=== PATIENT | female | born 1965 | race American Indian/Alaskan Native ===

== ENCOUNTER 2016-08-08 12:50 | Emergency (ER) | payer OTHER ==
[2016-08-08 13:18] VITALS: TEMP 98.2; BMI 36.9
[2016-08-08] MEDS ORDERED: ASPIRIN 81 MG CHEWABLE TABLETS PO ONE (16:46)
--- NOTE | 2016-08-08 16:46 | PDOC ---
History of Present Illness <Hilary Berkowitz - Last Filed: 08/08/16 19:11> <Ashlie Bowers - Last Filed: 08/09/16 02:35> - General Chief Complaint: Chest Pain Stated Complaint: RT SIDED CHEST PAIN Time Seen by Provider: 08/08/16 16:26 - History of Present Illness Initial Comments: 08/08/16 17:28 The patient is a 51 year old female with a past medical hx of NIDDM, anxiety who presents to the ED complaining of chest pain since today. The patient reports her pain is localized to the right upper chest. She states the pain is radiating into her right shoulder. The patient describes her chest pain as constant and squeezing and reports it feels as if her ribcage is in pain. The patient reports her pain is not significant. The patient denies any SOB, nausea, vomiting, diaphoresis The patient denies any fever, chills Surgical history: Appendectomy and (Hilary Berkowitz) Past History <Hilary Berkowitz - Last Filed: 08/08/16 19:11> - Past Medical History Diabetes: Yes - Surgical History Abdominal Surgery: Yes Appendectomy: Yes - Psycho/Social/Smoking Cessation Hx Anxiety: No Suicidal Ideation: No Smoking History: Never smoked Hx Alcohol Use: No Substance Use Type: None <Ashlie Bowers - Last Filed: 08/09/16 02:35> - Past Medical History Allergies/Adverse Reactions: Allergies Allergy/AdvReac Type Severity Reaction Status Date / Time No Known Allergies Allergy Verified 08/08/16 13:14 Home Medications: Ambulatory Orders NK [No Known Home Medication] 08/08/16 Review of Systems - Review of Systems Able to Perform ROS?: Yes <Hilary Berkowitz - Last Filed: 08/08/16 19:11> <Ashlie Bowers - Last Filed: 08/09/16 02:35> - Review of Systems Comments:: 08/08/16 17:29 CONSTITUTIONAL: Absent: fever, chills, diaphoresis, generalized weakness, malaise, loss of appetite HEENT: Absent: rhinorrhea, nasal congestion, throat pain, throat swelling, difficulty swallowing, mouth swelling, ear pain, eye pain, visual Changes CARDIOVASCULAR: +Chest pain. Absent: syncope, palpitations, irregular heart rate, lightheadedness, peripheral edema RESPIRATORY: Absent: cough, shortness of breath, dyspnea with exertion, orthopnea, wheezing, stridor, hemoptysis GASTROINTESTINAL: Absent: abdominal pain, abdominal distension, nausea, vomiting, diarrhea, constipation, melena, hematochezia GENITOURINARY: Absent: dysuria, frequency, urgency, hesitancy, hematuria, flank pain, genital pain MUSCULOSKELETAL: Absent: myalgia, arthralgia, joint swelling SKIN: Absent: rash, itching, pallor HEMATOLOGIC/IMMUNOLOGIC: Absent: easy bleeding, easy bruising, lymphadenopathy, frequent infections ENDOCRINE: Absent: unexplained weight gain, unexplained weight loss, heat intolerance, cold intolerance NEUROLOGIC: Absent: headache, focal weakness or paresthesias, dizziness, unsteady gait, seizure, mental status changes, bladder or bowel incontinence PSYCHIATRIC: Absent: anxiety, depression, suicidal or homicidal ideation, hallucinations. ( Hilary Berkowitz) *Physical Exam <Hilary Berkowitz - Last Filed: 08/08/16 19:11> <Ashlie Bowers - Last Filed: 08/09/16 02:35> - Vital Signs Last Vital Signs Temp Pulse Resp BP Pulse Ox 98.2 F 82 19 135/80 99 08/08/16 13:14 08/08/16 20:05 08/08/16 20:05 08/08/16 20:05 08/08/16 20:05 - Physical Exam Comments: 08/08/16 17:29 GENERAL: Well developed, well nourished. Awake and alert. No acute distress. HEENT: Normocephalic, atraumatic. PERRLA, EOMI. No conjunctival pallor. Sclera are non- icteric. Moist mucous membranes. Oropharynx is clear. NECK: Supple. Full ROM. No JVD. Carotid pulses 2+ and symmetric, without bruits. No thyromegaly. No lymphadenopathy. CARDIOVASCULAR: Regular rate and rhythm. No murmurs, rubs, or gallops. Distal pulses are 2+ and symmetric. PULMONARY: No evidence of respiratory distress. Lungs clear to auscultation bilaterally. No wheezing, rales or rhonchi. ABDOMINAL: Soft. Non-tender. Non-distended. No rebound or guarding. No organomegaly. Normoactive bowel sounds. MUSCULOSKELETAL Normal range of motion at all joints. No bony deformities or tenderness. No CVA tenderness. EXTREMITIES: No cyanosis. No clubbing. No edema. No calf tenderness. SKIN: Warm and dry. Normal capillary refill. No rashes. No jaundice. NEUROLOGICAL: Alert, awake, appropriate. Cranial nerves 2-12 intact. No deficits to light touch and temperature in face, upper extremities and lower extremities. (Hilary Berkowitz) Heart Score/ECG Review <Hilary Berkowitz - Last Filed: 08/08/16 19:11> <Ashlie Bowers - Last Filed: 08/09/16 02:35> - ECG Impressions Comment:: 08/08/16 19:[address] Bowers NSR at a rate of 89 bpm low voltage QRS Incomplete RBBB When compared to March 2015, similar. (Hilary Berkowitz) ED Treatment Course - LABORATORY CBC & Chemistry Diagram: 08/08/16 17:40 08/08/16 17:40 <Hilary Berkowitz - Last Filed: 08/08/16 19:11> - LABORATORY CBC & Chemistry Diagram: 08/08/16 17:40 08/08/16 17:40 <Ashlie Bowers - Last Filed: 08/09/16 02:35> - ADDITIONAL ORDERS Additional order review: Laboratory Results 08/08/16 08/08/16 17:40 17:40 INR 1.01 D-Dimer < 200 Sodium 139 Potassium 4.1 Chloride 103 Carbon Dioxide 26 Anion Gap 10 BUN 11 D Creatinine 0.7 Creat Clearance w eGFR > 60 Random Glucose 90 D Calcium 8.8 Magnesium 1.9 Total Bilirubin 0.4 D AST 12 L ALT 28 Alkaline Phosphatase 73 Creatine Kinase 37 Troponin I < 0.02 Total Protein 6.9 Albumin 3.6 08/08/16 17:40 RBC 4.68 MCV 78.1 L MCHC 31.3 L RDW 15.0 MPV 8.7 Neutrophils % 58.9 D Lymphocytes % 30.8 D Monocytes % 5.4 Eosinophils % 3.6 Basophils % 1.3 - RADIOLOGY Radiology Studies Ordered: Category Date Time Status CHEST PA & LAT [RAD] Stat Radiology 08/08/16 16:46 Completed - Medications Given in the ED: ED Medications Discontinued Medications Generic Name Dose Route Start Last Admin Trade Name Freq PRN Reason Stop Dose Admin Aspirin 162 mg 08/08/16 16:46 08/08/16 18:03 Asa - PO 08/08/16 16:47 162 mg ONCE ONE Administration Medical Decision Making <Hilary Berkowitz - Last Filed: 08/08/16 19:11> <Ashlie Bowers - Last Filed: 08/09/16 02:35> - Medical Decision Making 08/09/16 02:33 51 yo female has had squeezing right sided chest pain radiating to her shoulder for 1 week -no anterior chest bee, no dyspnea cbc wnl negative cardiac enzyme d dimer negative cxr napd pt will followup with her physician for 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 (Ashlie Bowers) *DC/Admit/Observation/Transfer <Hilary Berkowitz - Last Filed: 08/08/16 19:11> <Ashlie Bowers - Last Filed: 08/09/16 02:35> Diagnosis at time of Disposition: Atypical chest pain - Discharge Dispostion Disposition: HOME Condition at time of disposition: Stable - Referrals Referrals: Zoe Marks [Primary Care Provider] - - Patient Instructions Printed Discharge Instructions: DI for Atypical Chest Pain, DI for Chest Pain Additional Instructions: please follow up with your regular physician this week to have cardiology referral for echo - Attestations Scribe Attestion: 08/08/16 17:28 Documentation prepared by Hilary Berkowitz, acting as medical payment poster for Ashlie Bowers MD/. (Hilary Berkowitz)
[2016-08-08] MEDS ORDERED: ASPIRIN 81 MG CHEWABLE TABLETS ONE (17:46)
[2016-08-08 17:52] LABS: BASOPHIL 1.3 % (0-2.0); EOSINOPHIL 3.6 % (0-4.5); MCH 24.4 pg (25.7-33.7); MCHC 31.3 g/dl (32.0-36.0); MEAN CELL VOLUME 78.1 fl (80-96); MEAN PLT VOLUME 8.7 fl (7.5-11.1); NEUTROPHILS 58.9 % (42.8-82.8); PLATELET COUNT 249 K/MM3 (134-434); WHITE BLOOD COUNT 11.3 K/mm3 (4.0-10.0)
[2016-08-08 18:10] LABS: INR 1.01 (0.82-1.09)
[2016-08-08 18:13] LABS: D-DIMER < 200 ng/ml (<200-235)
[2016-08-08 18:33] LABS: ALBUMIN 3.6 g/dl (3.4-5.0); ANION GAP 10 (8-16); BILIRUBIN,TOTAL 0.4 mg/dL (0.2-1.0); CALCIUM 8.8 mg/dL (8.5-10.1); CO2 26 mmol/L (21-32); CREATININE 0.7 mg/dL (0.55-1.02); GLUCOSE,RANDOM 90 mg/dL (74-106); MAGNESIUM 1.9 mg/dL (1.8-2.4); SGOT/AST 12 U/L (15-37); SGPT/ALT 28 U/L (12-78); TOT PROT 6.9 g/dl (6.4-8.2)
[2016-08-08 18:36] LABS: ALK PHOS 73 U/L (45-117); TROPONIN I < 0.02 ng/ml (0.00-0.05)
[2016-08-08 20:06] VITALS: BP 135/80; PULSE 82
--- NOTE | 2016-08-09 13:22 | EKG ---
Test Reason : Blood Pressure : / mmHG Vent. Rate : 089 BPM Atrial Rate : 089 BPM P-R Int : 170 ms QRS Dur : 094 ms QT Int : 352 ms P-R-T Axes : 055 066 044 degrees QTc Int : 428 ms NORMAL SINUS RHYTHM LOW VOLTAGE QRS INCOMPLETE RIGHT BUNDLE BRANCH BLOCK BORDERLINE ECG WHEN COMPARED WITH ECG OF 08-MAR-2015 19:47, NO SIGNIFICANT CHANGE WAS FOUND Confirmed by LANDON GRISSOM, RISHI ([id number]) on 08/09/2016 1:21:56 PM Referred By: Confirmed By:RISHI NAVARRETE MD
== END 2016-08-08 20:07 | disposition home or self-care (01) ==
LOC: JER 12:50
DX: R07.89 Other chest pain (principal); E11.9 Type 2 diabetes mellitus without complications
CPT/HCPCS: 36415; 71020-TC; 80053; 82550; 83735; 84484; 85025; 85379; 85610; 93005; 93010; 99284-25

== ENCOUNTER 2018-07-03 09:53 | Day surgery (SDC) | payer OTHER ==
[2018-07-03 10:27] VITALS: BMI 36.4
[2018-07-03] MEDS ORDERED: CEFAZOLIN 1 GM/D5W 1 GM/50 ML BAG ONE (10:27)
[2018-07-03] MEDS ORDERED: ceFAZolin SODIUM 1 GM VIAL IVPB ONE (10:49)
[2018-07-03 11:18] VITALS: TEMP 98.3
[2018-07-03 11:37] VITALS: BP 154/87
[2018-07-03 12:32] VITALS: PULSE 70
--- NOTE | 2018-07-04 15:24 | PATH ---
Surgical Pathology Report Patient Name: PASCUAL CASTILLO [facility]. Rec. #: [id number] /Age/Gender: 1965 (Age: 53) / F Account: [id number] Location: U-ENDOSCOPY Taken: 07/03/2018 Received: 07/03/2018 Reported: 07/04/2018 Physicians: Kirsty Reese M.D. Specimen(s) Received ANTRUM Clinical History Cirrhosis, rule out varices Postoperative diagnosis: Esophageal varices Final Diagnosis ANTRUM, BIOPSY: GASTRIC ANTRAL MUCOSA WITH MILD CHRONIC GASTRITIS. IMMUNOHISTOCHEMICAL STAIN FOR H. PYLORI IS NEGATIVE. Electronically Signed Maria Victoria Juarez M.D. Gross Description Received in formalin, labeled "antrum biopsy" is a bo, irregular portion of soft tissue measuring 0.5 cm. in greatest dimension. The specimen is submitted in toto in one cassette. /07/03/201807/03/2018
== END 2018-07-03 12:15 | disposition home or self-care (01) ==
LOC: JASU-ENDO 09:53
PROVIDERS: ATTEND Internal Medicine Gastroenterology
PROC: 0DB68ZX Excision of Stomach, Via Natural or Artificial Opening Endoscopic, Diagnostic (ICD-10-PCS; 2018-07-03)
PROC: 06L38CZ Occlusion of Esophageal Vein with Extraluminal Device, Via Natural or Artificial Opening Endoscopic (ICD-10-PCS; principal; 2018-07-03 08:45)
DX: I85.00 Esophageal varices without bleeding (principal); K29.50 Unspecified chronic gastritis without bleeding
CPT/HCPCS: 84703; 88305-TC; 88342-TC

== ENCOUNTER 2018-08-02 10:52 | Day surgery (SDC) | payer OTHER ==
[2018-08-01 13:15] VITALS: BMI 37.2
[2018-08-02] MEDS ORDERED: CEFAZOLIN 1 GM/D5W 1 GM/50 ML BAG ONE (11:59)
[2018-08-02] MEDS ORDERED: ceFAZolin SODIUM 1 GM VIAL IVPB ONE (12:57)
[2018-08-02 13:48] VITALS: TEMP 98.5
[2018-08-02 14:19] VITALS: PULSE 68
[2018-08-02 14:20] VITALS: BP 143/85
== END 2018-08-02 14:20 | disposition home or self-care (01) ==
LOC: JASU-ENDO 10:52
PROVIDERS: ATTEND Internal Medicine Gastroenterology
PROC: 0DJ08ZZ Inspection of Upper Intestinal Tract, Via Natural or Artificial Opening Endoscopic (ICD-10-PCS; principal; 2018-08-02 11:15)
DX: K21.9 Gastro-esophageal reflux disease without esophagitis (principal); K44.9 Diaphragmatic hernia without obstruction or gangrene
CPT/HCPCS: 84703

== ENCOUNTER 2019-02-18 09:13 | Day surgery (SDC) | payer OTHER ==
[2019-02-17 15:00] VITALS: BMI 38.5
[2019-02-18] MEDS ORDERED: LIDOCAINE HCL 2% JELLY 10 ML CARTRIDGE ONE (10:14)
[2019-02-18 11:48] VITALS: BP 114/57; PULSE 66; TEMP 98.2
== END 2019-02-18 11:48 | disposition home or self-care (01) ==
LOC: JASU-ENDO 09:13
PROVIDERS: ATTEND Internal Medicine Gastroenterology
PROC: 0DJD8ZZ Inspection of Lower Intestinal Tract, Via Natural or Artificial Opening Endoscopic (ICD-10-PCS; principal; 2019-02-18 09:45)
DX: Z86.010 Personal history of colon polyps (principal); I10 Essential (primary) hypertension; R73.03 Prediabetes; K70.0 Alcoholic fatty liver
CPT/HCPCS: 82962; 84703

== ENCOUNTER 2025-01-22 06:35 | Day surgery (SDC) | payer OTHER ==
[2025-01-14 09:47] VITALS: BMI 36.0
[2025-01-22 09:49] VITALS: TEMP 97.3
[2025-01-22 10:21] VITALS: BP 156/87; PULSE 58; RESP 17
== END 2025-01-22 10:40 | disposition home or self-care (01) ==
LOC: JASU-ENDO 06:35
PROVIDERS: ATTEND Internal Medicine Gastroenterology
PROC: 0DB78ZX Excision of Stomach, Pylorus, Via Natural or Artificial Opening Endoscopic, Diagnostic (ICD-10-PCS; 2025-01-22)
PROC: 0DB68ZX Excision of Stomach, Via Natural or Artificial Opening Endoscopic, Diagnostic (ICD-10-PCS; principal; 2025-01-22 09:30)
DX: K29.50 Unspecified chronic gastritis without bleeding (principal); K29.80 Duodenitis without bleeding
CPT/HCPCS: 82962; 88305-TC; 88342-TC